=== PATIENT | female | born 1990 | race African-American/Black ===

== ENCOUNTER 2017-06-16 23:00 | Inpatient (IN) | payer OTHER ==
[~2017-06-16] VITALS: Ht 180.3 cm; Wt 68.0 kg
--- NOTE | ~2017-06-16 | PN ---
Unit #: [id number] #: [id number] Patient: JENNY SUTTON [id number] [facility] [address] [place] [address] [id number] I MR#: [id number] NAME: JENNY SUTTON ROOM: [facility] Age: 27 Sex: F Admission Date: 06/17/2017 : 1990 Attending Physician: Baldo Rondon M.D. Admitting Physician: Baldo Rondon M.D. Primary Care Physician: Primary Care Physician Alona SHAW PROGRESS NOTES DATE OF SERVICE: 06/18/2017 DISCUSSION Jenny continues to have anxiety and "palpitations," which she believes are cardiac in nature, despite her EKG be negative and previous evaluations being negative, she is reassured that this is related to her detox, and that she continues to be safe. She is otherwise alert and fully oriented with no psychosis, and no SI. ASSESSMENT Opioid dependence. PLAN Continue detox protocol. Dictated by... Gloria Starkey/rj TD: 06/22/2017 11:17 JOB #: [id number] COLIN PROGRESS NOTES Page 1 of 1 X Baldo Rondon MD PROGRESS NOTE
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
--- NOTE | ~2017-06-16 | EKG ---
PATIENT: JENNY SUTTON UNIT #: [id number] Ventricular Rate: 83 BPM Atrial Rate: 83 BPM P-R Interval: 158 ms QRS Duration: 88 ms Q-T Interval: 358 ms QTC Calculation(Bezet): 420 ms P [place]: 70 degrees Calculated R [place]: 75 degrees Calculated T [place]: 62 degrees Diagnosis Line: Normal sinus rhythm Diagnosis Line: Normal ECG Diagnosis Line: No previous ECGs available Diagnosis Line: Confirmed by GEORGE BYRD MD ([id number]) on 06/19/2017 Diagnosis Line: 2:48:55 PM INTERPRETING MD: CARSON MASON
--- NOTE | ~2017-06-16 | CO ---
Unit #: [id number] #: [id number] Patient: JENNY SUTTON [id number] [facility] [address] [place] [address] [id number] I MR#: [id number] NAME: JENNY SUTTON ROOM: 73 Age: 27 Sex: F Admission Date: 06/17/2017 : 1990 Attending Physician: Baldo Rondon M.D. Primary Care Physician: Primary Care Physician No Consultation Date: 06/17/2017 CONSULTATION REPORT SUBJECTIVE Jenny is a 27 year old who was noted to have a rapid heartbeat on one of her vital sign checks. We have been asked to assess and given recommendations. She is admitted because of her illicit drug use which includes IV heroin, and benzodiazepines. She has no history of sustained tachycardia. At the time of admission H and P, her blood pressure was 118/84 with a heart rate of 80 which was regular, respirations of 16, and temperature 98.6. In reviewing her documented vital signs, taken by floor staff, she had two readings of 105 and 107 later on her admission day, except for those two heart rate was consistently below 90. We will continue to monitor vital signs. Dictated by... Yani Chatterjee P.A.-C. for Gloria Alfredo/kehinde TD: 06/23/2017 11:28 JOB #: [id number] CONSULTATION REPORT Page 1 of 1 X Yani Chatterjee CONSULTATION REPORT
--- NOTE | ~2017-06-16 | CO ---
Unit #: [id number] #: [id number] Patient: JENNY SUTTON [id number] [place] [address] [id number] I MR#: [id number] NAME: JENNY SUTTON ROOM: 73 Age: 27 Sex: F Admission Date: 06/17/2017 : 1990 Attending Physician: Baldo Rondon M.D. CONSULTATION REPORT History and physical completed on 06/18/2017. HISTORY OF PRESENT ILLNESS Rico is a 27-year-old female, admitted on 06/17/2017 to [facility]. She has complaints of rapid heart rate. She was seen yesterday and the EKG showed normal sinus rhythm. She reports that the fast heartbeat is worse at night and causes her shortness of breath and it usually occurs when someone comes into her room and opens the door. She then wakes up and has a very fast heartbeat. She has been seen 4 times in different ERs in [place] over the last 2 weeks for the same thing and reports that at one point, her heart rate was greater than 180 and she was given Ativan. She has no other complaints. PHYSICAL EXAMINATION CARDIAC: Regular rate and rhythm. No murmurs, gallops, or rubs. RESPIRATORY: Clear to auscultation bilaterally. ASSESSMENT AND PLAN Anxiety. Rico is experiencing tachycardia at night and it is always caused by somebody opening her door or loud noise outside, most likely due to anxiety and she reports that she is able to breathe and calm herself down and go back to sleep and she feels a lot better. She was instructed to discuss with Dr. Rondon and to notify if she is unable to decrease her heart rate on her own. Dictated by... Darleen Abraham/rj TD: 06/19/2017 03:29 JOB #: [id number] Unit #: [id number] #: [id number] Patient: JENNY SUTTON CONSULTATION REPORT Page 1 of 1 X JOEY AGUILERA APRN CONSULTATION REPORT
--- NOTE | ~2017-06-16 | HP ---
Unit #: [id number] #: [id number] Patient: JENNY SUTTON [id number] [place] [address] [id number] I MR#: [id number] NAME: JENNY SUTTON ROOM: P173 Age: 27 Sex: F Admission Date: 06/17/2017 : 1990 Attending Physician: Baldo Rondon M.D. Admitting Physician: Baldo Rondon M.D. Primary Care Physician: Primary Care Physician No HISTORY AND PHYSICAL HISTORY OF PRESENT ILLNESS Jenny is a 27 year old admitted to [facility] because of her drug use. She shoots heroin. PAST MEDICAL HISTORY 1. Long history of opioid abuse to include IV heroin and benzodiazepines. 2. History of withdrawal seizure. PAST SURGICAL HISTORY 1. T and A. 2. Tubal ligation. ALLERGIES No known drug allergies. SOCIAL HISTORY Smokes less than one pack per day. Denies alcohol. Admits to a history of opioid abuse to include IV heroin. She also abuses benzodiazepines. FAMILY HISTORY Medically noncontributory. REVIEW OF SYSTEMS CONSTITUTIONAL: No fever or chills. HEENT: Denies any sore throat, ear pain or runny nose. CARDIOVASCULAR: Denies chest pain, irregular heart rhythm or palpitations. CHEST: Denies shortness of breath or cough. No hemoptysis. GASTROINTESTINAL: Denies nausea, vomiting, diarrhea or chronic constipation. ENDOCRINE: Denies history of increased thirst or urination. No recent significant weight loss or gain. GENITOURINARY: Denies dysuria, frequency, or hematuria. SKIN: Denies any rashes. HEMATOLOGIC: Denies history of increased bleeding or bruising. MUSCULOSKELETAL: Denies any hot, swollen joints. No generalized muscle pain. NEUROLOGIC: Denies problems with vision or speech. No frequent, severe headaches. No numbness, tingling or weakness in any extremities. Denies loss of bladder or bowel control. CURRENT MEDICATIONS Detox protocol. Unit #: [id number] #: [id number] Patient: JENNY SUTTON PHYSICAL EXAMINATION GENERAL: Alert, well-nourished, in no apparent distress. VITAL SIGNS: Blood pressure 118/84, heart rate 80, respirations 16, temperature 98.6. WEIGHT: 150. HEIGHT: 5 foot 11 inches. SKIN: Warm and dry without rash or lesion. HEENT: Normocephalic. TMs not viewed. Oral and nasal passages clear. Conjunctivae clear. Pupils equal, round and reactive to light and accommodation. Extraocular movements intact. NECK: Supple without lymphadenopathy. There is enlargement of the thyroid left pulse slightly greater than the right. HEART: Regular rate and rhythm without murmur. LUNGS: Clear. ABDOMEN: Soft, nontender. : Not done. EXTREMITIES: No evidence of cyanosis, clubbing or edema. Moves all extremities without focal deficit. NEUROLOGICAL: Grossly within normal limits. Cranial Nerves: II: Visual gregg are intact. III, IV AND : Extraocular movements are intact. Pupils are equal, round and reactive to light. V: Facial sensation is grossly normal. VII: Facial movements and expression are normal. VIII: Auditory acuity grossly intact. IX, X: Uvula is midline. Phonation is normal. XI: Patient shrugs shoulders and turns head normally. XII: Tongue protrudes in the midline. Sensory and Motor Function: Sensory and motor sensation is grossly normal. Motor: moves all extremities well. Coordination: Gait is normal. Deep Tendon Reflexes: Intact. IMPRESSION Psychiatric admission. RECOMMENDATIONS PSYCHIATRIC: Per psychiatrist. MEDICAL: 1. I see no contraindications to participating in facility's activities. 2. Patient knows to followup with her PCP concerning enlarged thyroid. MEDICAL PROGNOSIS Good. MEDICAL CONDITION Stable. Dictated by... Yani Chatterjee P.A.-C. for Gloria Alfredo/otilia TD: 06/17/2017 22:04 Unit #: [id number] #: [id number] Patient: JENNY SUTTON JOB #: [id number] HISTORY AND PHYSICAL Page 1 of 1 X Yani Chatterjee HISTORY AND PHYSICAL
[2017-06-17 09:40] LABS: BASOPHIL% 0.6 % (0-2.5); EOSINOPHIL# 0.1 X10e3 (0-0.7); EOSINOPHIL% 2.1 % (0.0-7.0); HEMATOCRIT 34.2 % (35.0-45.0); LYMPHOCYTE# 1.7 X10e3 (1.0-3.5); LYMPHOCYTE% 29.1 % (17.0-45.0); MEAN CELL VOLUME 89.8 FL (83-96); MEAN CORPUSCULAR HEMOGLOBIN 31.4 PG (28-34); MEAN PLATELET VOLUME 8.7 FL (6.5-11.5); MONOCYTE# 0.6 X10e3 (0-1.0); MONOCYTE% 10.8 % (3.0-12.0); NEUTROPHIL# 3.3 X10e3 (1.5-7.1); NEUTROPHIL% 57.4 % (40-75); PLATELET COUNT 239 X10e3 (140-420); RED BLOOD COUNT 3.81 X10e (3.90-5.30); RED CELL DISTRIBUTION WIDTH 12.5 % (11.0-15.5); WHITE BLOOD COUNT 5.8 X10e3 (4.0-10.5)
[2017-06-17 09:45] LABS: ALBUMIN SERUM 4.1 g/dL (3.5-5.0); BILIRUBIN,TOTAL 0.3 mg/dL (0.2-2.0); CALCIUM SERUM 9.3 mg/dL (8.4-10.2); CREATININE SERUM 0.8 mg/dL (0.6-1.4); GLOM FILT RATE Estimated 115.6 mL/min (>60); POTASSIUM 4.2 mmol/L (3.5-5.1); PROTEIN TOTAL SERUM 6.5 g/dL (6.0-8.3)
[2017-06-17 09:57] LABS: DIFF IND NO
[2017-06-17 12:58] LABS: URINE APPEARANCE CLEAR; URINE BILIRUBIN NEG (NEG); URINE BLOOD NEG (NEG); URINE COLOR YELLOW; URINE GLUCOSE NEG (NEG); URINE KETONE NEG (NEG); URINE LEUKOCYTE ESTERASE NEG (NEG); URINE NITRATE NEG (NEG); URINE PROTEIN NEG (NEG); URINE SPECIFIC GRAVITY 1.014 (1.003-1.035); URINE UROBILINOGEN 0.2 MG/DL (NEG)
[2017-06-17 13:44] LABS: AMPHETAMINE NEG (NEG); BARBITURATES NEG (NEG); BENZODIAZEPINES POS (NEG); COCAINE NEG (NEG); MARIJUANA NEG (NEG); OPIATES POS (NEG); TRICYCLIC ANTIDEPRESSANTS POS (NEG); U METHADONE NEG (NEG)
== END 2017-06-19 13:15 | disposition home or self-care (01) | DRG 897 ==
LOC: P1E 06-17 03:05
PROVIDERS: Psychiatry & Neurology Psychiatry
PROC: HZ2ZZZZ Detoxification Services for Substance Abuse Treatment (ICD-10-PCS; principal; 2017-06-17)
DX: F11.23 Opioid dependence with withdrawal (principal); F41.9 Anxiety disorder, unspecified; Z81.1 Family history of alcohol abuse and dependence; Z81.3 Family history of other psychoactive substance abuse and dependence; Z81.8 Family history of other mental and behavioral disorders; Z98.51 Tubal ligation status; F17.200 Nicotine dependence, unspecified, uncomplicated
CPT/HCPCS: 80053; 80307; 81003; 85025; 86592; 93005